=== PATIENT | male | born 1990 | race African-American/Black ===

== ENCOUNTER 2021-09-28 12:41 | Emergency (ER) | payer SELFPAY ==
[2021-09-28] MEDS ORDERED: Ondansetron 4 MG Tab.DIS PO ONE (14:11)
== END 2021-09-28 13:30 | disposition home or self-care (01) ==
LOC: MW.ED 12:41
DX: J10.1 Influenza due to other identified influenza virus with other respiratory manifestations (principal); Z72.0 Tobacco use
CPT/HCPCS: 71046; 99284; A9270